=== PATIENT | female | born 1965 | race Caucasian/White ===

== ENCOUNTER 2018-01-27 11:20 | Inpatient (IN) ==
[2018-01-27] MEDS ORDERED: Chlorhexidine Gluconate 2% 1 Pack (2 Cloths) TOPICAL ONE (12:15)
[2018-01-27] MEDS ORDERED: Sodium Chlor 0.9% Inj 500 ML IV.CONT ONE (12:15)
[2018-01-27] MEDS ORDERED: Metoprolol Tartrate 25 MG Tablet PO ONE (12:15)
[2018-01-27] MEDS ORDERED: ceFAZolin 2 GM IV; once IV.SIG ONE (12:30)
[2018-01-27] MEDS ORDERED: Famotidine PF Inj 20 MG/2 ML Vial ONE (13:03)
[2018-01-27 13:04] LABS: INR 1.1 Ratio; Prothrombin Time 11.3 sec (9.8-11.6)
[2018-01-27] MEDS ORDERED: Ketorolac Inj 30 MG/ML (IVP) Vial IV.PUSH ONE (13:51)
[2018-01-27] MEDS ORDERED: Sod Chloride 0.9% Inj 1,000 ML IV.CONT ONE (13:51)
[2018-01-27] MEDS ORDERED: Esmolol Bolus Inj 100 MG/10 ML Vial IV.PUSH ONE (13:51)
[2018-01-27] MEDS ORDERED: Sugammadex Inj 200 MG/2 ML Vial IV.PUSH ONE (16:57)
[2018-01-27] MEDS ORDERED: fentaNYL Citrate Inj 100 MCG/2 ML Ampul ONE ×2 (16:58)
[2018-01-27] MEDS ORDERED: Sodium Chlor 0.9% Inj 1,000 ML IV.SIG SCH (18:00)
[2018-01-27] MEDS ORDERED: *Ondansetron Inj 4 MG/2 ML Vial PERIprocedural Use ONLY ONE (18:32)
[2018-01-27 18:48] LABS: Baso % (Auto) 0.3 % (0.0-2.0); Eos % (Auto) 0.2 % (0.0-4.0); Hemoglobin 13.8 gm/dL (11.6-15.3); Lymph # (Auto) 1.5 th/mm3 (1.0-4.8); Lymph % (Auto) 12.4 % (9.0-44.0); Mean Corpuscular HGB Conc 33.8 % (32.0-36.0); Mean Corpuscular Hemoglobin 28.7 pg (27.0-34.0); Mean Corpuscular Volume 84.9 fL (80.0-100.0); Mean Platelet Volume 9.1 fL (7.0-11.0); Mono # (Auto) 0.4 th/mm3 (0.0-0.9); Mono % (Auto) 3.3 % (0.0-8.0); Neut # (Auto) 9.8 th/mm3 (1.8-7.7); Neut % (Auto) 83.8 % (16.0-70.0); Platelet Count 109 th/mm3 (150-450); Red Blood Count 4.82 mil/mm3 (4.00-5.30); White Blood Count 11.7 th/mm3 (4.0-11.0)
[2018-01-27] MEDS ORDERED: *Promethazine Inj 25 MG/ML Vial PERIprocedural use ONLY ONE (18:49)
[2018-01-27] MEDS ORDERED: *morphine SULFATE 4 MG/ML PERIprocedure ONLY ONE ×2 (18:49→18:59)
[2018-01-27] MEDS ORDERED: Dextrose 50% in Water 50 ML Vial IV.PUSH PRN (18:55)
[2018-01-27 19:06] LABS: Calcium 7.8 mg/dL (8.5-10.1); Carbon Dioxide 22.1 meq/L (21.0-32.0); Potassium 4.2 meq/L (3.5-5.1)
[2018-01-27] MEDS ORDERED: HYDROmorphone PF Inj 2 MG/ML Vial ONE (19:16)
[2018-01-27] MEDS: Pantoprazole Inj 40 MG Vial IV.PUSH SCH (20:07)
[2018-01-27] MEDS: Docusate Sodium 100 MG Capsule PO SCH (20:45)
[2018-01-27] MEDS: Insulin NovoLOG Aspart Correctional Sugar Inj SQ SCH (21:18)
[2018-01-27] MEDS: Insulin Detemir Inj 1,000 UNIT/10 ML Vial SQ SCH (21:19)
[2018-01-28 07:31] LABS: Hematocrit 37.6 % (35.0-46.0); Hemoglobin 12.8 gm/dL (11.6-15.3); Mean Corpuscular Hemoglobin 29.3 pg (27.0-34.0); Mean Corpuscular Volume 86.1 fL (80.0-100.0); Mean Platelet Volume 9.5 fL (7.0-11.0); Platelet Count 108 th/mm3 (150-450); Red Blood Count 4.36 mil/mm3 (4.00-5.30); Red Cell Distribution Width 14.2 % (11.6-17.2)
[2018-01-28 07:56] LABS: Potassium 4.2 meq/L (3.5-5.1)
[2018-01-28] MEDS: Morphine Inj 4 MG/ML Vial IV.PUSH PRN ×4 (08:01→22:48)
[2018-01-28] MEDS: Insulin NovoLOG Aspart Correctional Sugar Inj SQ SCH ×4 (08:03→21:46)
[2018-01-28] MEDS: Docusate Sodium 100 MG Capsule PO SCH ×2 (08:03→20:46)
[2018-01-28] MEDS: Lisinopril 20 MG Tablet PO SCH (08:03)
[2018-01-28] MEDS ORDERED: DAPAGLIFLOZIN PO SCH (09:00)
[2018-01-28] MEDS ORDERED: Sodium Chloride 0.9% 2 ML Flush PRN IV.FLUSH (09:25)
--- NOTE | 2018-01-28 13:02 | MP ---
cc: Oz Banks MD DATE OF OPERATION: 01/27/2018 PREOPERATIVE DIAGNOSES: 1. A 4.5 cm solid right lower pole renal mass. 2. History of diabetes. POSTOPERATIVE DIAGNOSES: 1. A 4.5 cm solid right lower pole renal mass. 2. History of diabetes. PROCEDURE PERFORMED: Robotic-assisted laparoscopic right radical nephrectomy. SURGEON: Oz Banks MD ANESTHESIA: General. COMPLICATIONS: None. PREOPERATIVE ANTIBIOTICS: Ancef 1 gram IV. DRAINS: Low catheter. SPECIMENS: Right kidney for permanent. BLOOD LOSS: 100 mL FLUIDS: 1500 mL crystalloids per anesthesia. DISPOSITION: Stable to recovery. INDICATIONS/SIGNIFICANT HISTORY: The patient is a 52-year-old female with history of diabetes who was found to have a large lower pole right renal mass. Treatment options were discussed with her including the possibility of a robotic partial nephrectomy versus robotic radical nephrectomy. Risks, benefits, alternatives of each were explained. The patient elected to proceed. DETAILS OF PROCEDURE: The patient was properly identified and brought back to the operating room and laid supine on the operating table. A proper timeout was performed. Under the direction of anesthesiology the patient was intubated and induced under general anesthetic. Preoperative IV antibiotics of Ancef 2 grams IV was given within 1 hour of the start of the procedure. A Low catheter was placed under sterile technique. The patient was then placed in left lateral decubitus position with right side up. All pressure points were padded. She was then prepped and draped in normal sterile surgical fashion. A stab incision was made superior and lateral to the umbilicus. A Veress needle was then used to gain access to the abdominal cavity. Insufflation was then achieved. The incision was extended to approximately 2 cm under direct vision and then passed a 12 mm camera port into the abdominal cavity and abdominal cavity was carefully inspected. There was no evidence of any bleeding or intra-abdominal injury. The patient did have some anterior abdominal wall adhesions up near the liver. At this point, 5 other laparoscopic ports were then placed, under direct visualization, including two 8 mm robotic ports triangulated off of the camera port, a 5 mm port in the midline just below the xiphoid process for liver retraction as well as two 12 mm printer's assistant ports in the midline superior and inferior to the umbilicus. Again, all ports were placed under direct visualization. At this point, the robot was then brought into position. I began by taking down the anterior abdominal wall adhesions. These were taken down with a combination of blunt dissection with cold scissors. At this point, I then took down the white line of Toldt to reflect the colon medially. This exposed the retroperitoneum. I was able to easily find the duodenum. Prior to kocherizing the duodenum, I then placed a locking grasper through the 5 mm port under direct visualization and grasped the side wall. Then was able to retract the liver cephalad. At this point, and then carefully kocherized the duodenum and medialized it to expose the IVC. I then developed a plane between the IVC and the right, gonadal vein. I was able to see the attachment of the right gonadal vein into the IVC. A plane was then developed in which I retracted the kidney towards the anterior abdominal wall and exposed the psoas muscle and the IVC. I carefully marched up the IVC until the attachment of the gonadal vein was seen. The gonadal vein was taken with a robotic vessel sealer. I then continued to march up the IVC to the level of the renal hilum; a single artery, but 2 separate veins were seen. A lower pole vein was carefully taken with an endovascular SHELLY stapler. At this point, with both the artery and main renal vein exposed, I then turned my attention to locating the tumor on the kidney itself. The perinephric fat was then removed from the kidney to expose the surface of the kidney. I came across a large inferior solid renal mass on the posterior portion of the kidney, which was very large. It also appeared to be infiltrating towards the hilum. Due to these findings, I decided that it was not feasible to get a clear margin safely by doing a partial nephrectomy, therefore I did decide to convert to a radical nephrectomy, which was previously discussed with the patient. At this point with the artery and renal vein each already dissected out, each one was taken separately with an endovascular GI stapler. At this point, the lateral and superior attachments were then taken down and divided to free up the entire kidney other than the lower pole where the ureter was attached. I was able then to divide the ureter with robotic vessel sealer and the entire bag. The kidney was then placed in the EndoCatch bag. There appeared to be some excess tissue along the IVC near the renal hilum. This was carefully dissected out and placed in the bag with the kidney itself to be shown to the pathologist. At this point, the renal fossa was then copiously irrigated. Hemostasis was achieved. Pneumoperitoneum was brought down to 7 mmHg. There was no evidence of any bleeding. Evicel was then used for hemostatic purposes. This was placed on the adrenal bed, renal fossa and renal hilum. The liver retractor was then removed. The liver appeared to be intact. The IVC was intact as well. No bleeding was seen. No other tissue remained. At this point, I then extracted the specimen through the right lower quadrant incision after extending the right lower quadrant incision. It was then closed in 2 layers. The peritoneum was closed with a running 3-0 Vicryl. The fascia was closed with a running #1-PDS. The epigastrics were visualized and remained intact. At this point a second look was then performed after achieving insufflation. The underside of the incision was free of any bowel. The renal fossa bed appeared to be dry. No bleeding was seen. All ports were removed under direct visualization. Sponge needle and instrument counts were correct at the end of the case. All incisions were closed with 4-0 Monocryl and reinforced with Dermabond. The patient was then extubated and sent to recovery in stable condition. She will be transferred to the floor for routine postoperative care. MD ROMAIN Vergara/toni , 12:23 PM , 12:36 PM OBED
--- NOTE | 2018-01-28 13:40 | P.PNURO ---
Subjective Patient symptoms today: Pt was seen at the bedside. s/p radical nephrectomy yesterday. c/p abd post/op pain, managed by pain meds prn. no f/c/n/v, no BM yet. Tolerates diet well, states that did not get regular food yet. Ambulates without issues to void. Voids normally after cisneros removal today. no hematuria. Labs are stable Objective Vital Signs: Vital Signs 01/27/18 18:30 01/27/18 18:45 01/27/18 19:00 Temperature 98.5 F Pulse Rate 91 H 85 90 Respiratory Rate 15 15 15 Blood Pressure 126/67 115/65 113/61 Pulse Oximetry 99 99 98 01/27/18 19:15 01/27/18 19:30 01/27/18 19:45 Temperature 99 F Pulse Rate 90 90 90 Respiratory Rate 14 12 12 Blood Pressure 118/62 113/57 L 110/56 L Pulse Oximetry 98 98 94 L 01/27/18 20:10 01/28/18 00:00 01/28/18 04:00 Temperature 98.3 F 98.2 F 98.5 F Pulse Rate 94 H 89 77 Respiratory Rate 17 17 17 Blood Pressure 102/52 L 108/54 L 104/58 L Pulse Oximetry 94 L 93 L 94 L 01/28/18 08:00 01/28/18 12:00 Temperature 98.2 F 98.2 F Pulse Rate 76 78 Respiratory Rate 17 17 Blood Pressure 108/52 L 97/53 L Pulse Oximetry 94 L 94 L Intake & Output 01/27/18 01/28/18 01/28/18 18:59 06:59 18:59 Intake Total 1550 / 1550 680 / 680 0 / 0 Output Total 350 / 350 650 / 650 Balance 1200 / 1200 30 / 30 0 / 0 Weight 93.8 kg 93.8 kg Intake: IV 50 / 50 200 / 200 0 / 0 NS Inj 1,000 ML @ 135 mls/hr IV 0 / 0 .SIG .Q10H AD[facility] Rx#:[id number] Ancef 2 GM Premix Inj 2 gm In 50 / 50 50 ml @ 100 mls/hr IV.SIG ONCE ONE Rx#:[id number] Ancef Inj 1,000 MG In NS Inj 200 / 200 100 ML @ 200 mls/hr IV.SIG Q8H ADRIEN Rx#:[id number] Oral 480 / 480 Anesthesia Amount 1500 / 1500 Output: Estimated Blood Loss 100 / 100 Urine Amount (Catheter) 250 / 250 650 / 650 Indwelling Urethral Catheter 250 / 250 650 / 650 Other: Weight On Admission 93.8 kg Result Diagrams: 01/28/18 05:19 01/28/18 05:19 Medications and IVs: Active Medications Generic Name Dose Route Start Last Admin Trade Name Freq PRN Reason Stop Dose Admin Atorvastatin Calcium 40 mg 01/28/18 09:00 01/28/18 08:03 Lipitor PO 40 mg DAILY ADRIEN Administration Dextrose 50 ml 01/27/18 18:55 D50w Vial IV.PUSH UNSCH PRN PER HYPOGLYCEMIA PROTOCOL Docusate Sodium 100 mg 01/27/18 21:00 01/28/18 08:03 Colace PO Not Given BID ADRIEN Escitalopram Oxalate 20 mg 01/28/18 09:00 01/28/18 08:03 Lexapro PO 20 mg DAILY ADRIEN Administration Glucagon 1 mg 01/27/18 18:55 Glucagon Inj OTHER PRN PRN for Hypoglycemia Protocol Sodium Chloride 1,000 mls @ 135 mls/hr 01/27/18 18:00 01/28/18 10:35 Ns Inj IV.SIG 135 mls/hr .Q10H [facility] Infusion Insulin Aspart 0 unit 01/27/18 21:00 01/28/18 12:48 Novolog Insulin Correctional Sugar Inj SQ Not Given ACHS [facility] Protocol Insulin Detemir 75 unit 01/27/18 21:00 01/27/18 21:19 Levemir Inj SQ 75 unit HS ADRIEN Administration Lisinopril 40 mg 01/28/18 09:00 01/28/18 08:03 Prinivil PO 40 mg DAILY ADRIEN Administration Metformin HCl 1,000 mg 01/28/18 09:00 01/28/18 08:02 Glucophage PO 1,000 mg DAILY ADRIEN Administration Miscellaneous Information 1 each 01/27/18 19:02 Misc Nursing Information OTHER 01/28/18 19:02 UNSCH PRN SEE LABEL COMMENTS Morphine Sulfate 4 mg 01/27/18 17:36 01/28/18 12:45 Morphine Inj IV.PUSH 4 mg Q4H PRN Administration BREAKTHROUGH PAIN Ondansetron HCl 4 mg 01/27/18 17:38 01/27/18 21:15 Zofran Inj IV.PUSH 4 mg Q6H PRN Administration NAUSEA OR VOMITING Oxycodone/Acetaminophen 2 tab 01/27/18 17:36 01/28/18 09:29 Percocet 5/325 Mg PO 2 tab Q4H PRN Administration PAIN SCALE 6 TO 10 Oxycodone/Acetaminophen 1 tab 01/27/18 17:38 Percocet 5/325 Mg PO Q4H PRN PAIN SCALE 3 TO 5 Pantoprazole Sodium 40 mg 01/27/18 20:00 01/27/18 20:07 Protonix Inj IV.PUSH Not Given Q24H ADRIEN Pt:Farxiga( 0 each 01/28/18 09:00 Dapagliflozin) 5 Mg PO DAILY ADRIEN Sodium Chloride 2 ml 01/28/18 21:00 Ns Flush IV.FLUSH BID ADRIEN Sodium Chloride 2 ml 01/28/18 09:25 Ns Flush IV.FLUSH PRN PRN FLUSH AFTER USING IV ACCESS Objective Remarks: NAD RRR Clear lungs Abd soft slightly distended. incisions c/d/i Assessment and Plan - Plan POD# 1 s/p Robotic-assisted laparoscopic right radical nephrectomy. - Continue current management - Pain control prn - Ambulate - Advance to diabetic diet - When in bed use IS - Labs at AM - If pain is improving and she feels better possibly d/c tomorrow
[2018-01-28] MEDS: Pantoprazole Inj 40 MG Vial IV.PUSH SCH (20:47)
[2018-01-28] MEDS: Insulin Detemir Inj 1,000 UNIT/10 ML Vial SQ SCH (20:48)
[2018-01-28] MEDS: Sodium Chloride 0.9% 2 ML Flush BID IV.FLUSH SCH (20:49)
[2018-01-29 04:58] LABS: Baso % (Auto) 0.2 % (0.0-2.0); Eos # (Auto) 0.1 th/mm3 (0.0-0.4); Eos % (Auto) 1.6 % (0.0-4.0); Hematocrit 37.5 % (35.0-46.0); Hemoglobin 12.5 gm/dL (11.6-15.3); Lymph # (Auto) 2.3 th/mm3 (1.0-4.8); Lymph % (Auto) 24.3 % (9.0-44.0); Mean Corpuscular HGB Conc 33.4 % (32.0-36.0); Mean Corpuscular Hemoglobin 28.9 pg (27.0-34.0); Mean Corpuscular Volume 86.6 fL (80.0-100.0); Mean Platelet Volume 9.1 fL (7.0-11.0); Mono # (Auto) 0.8 th/mm3 (0.0-0.9); Mono % (Auto) 8.4 % (0.0-8.0); Neut # (Auto) 6.1 th/mm3 (1.8-7.7); Neut % (Auto) 65.5 % (16.0-70.0); Platelet Count 96 th/mm3 (150-450); Red Blood Count 4.33 mil/mm3 (4.00-5.30); Red Cell Distribution Width 14.4 % (11.6-17.2); White Blood Count 9.3 th/mm3 (4.0-11.0)
[2018-01-29 05:18] LABS: Calcium 7.8 mg/dL (8.5-10.1); Carbon Dioxide 26.4 meq/L (21.0-32.0); Potassium 3.8 meq/L (3.5-5.1)
[2018-01-29 06:50] LABS: Platelet Morphology Normal (Normal)
[2018-01-29] MEDS: Morphine Inj 4 MG/ML Vial IV.PUSH PRN ×3 (08:34→19:23)
[2018-01-29] MEDS: Docusate Sodium 100 MG Capsule PO SCH ×2 (08:35→21:23)
[2018-01-29] MEDS: Insulin NovoLOG Aspart Correctional Sugar Inj SQ SCH ×4 (08:35→21:28)
[2018-01-29] MEDS: Lisinopril 20 MG Tablet PO SCH (08:36)
[2018-01-29] MEDS: Sodium Chloride 0.9% 2 ML Flush BID IV.FLUSH SCH ×2 (08:36→21:31)
--- NOTE | 2018-01-29 14:40 | P.PNURO ---
Subjective Patient symptoms today: Pt was seen at bedside. Still has pain issues at the largest incision site. Controlled with meds Also she has a chronic back pain and using pain meds at home for it. no f/c/n/v, had a spike of T to 100 earlier. Labs are ok. Voids without difficulties, no hematuria. No flatus or BM yet. Tolerates current diet well. No problems with ambulation Objective Vital Signs: Vital Signs 01/28/18 16:00 01/28/18 20:00 01/29/18 00:00 Temperature 98.2 F 99.5 F 99.8 F H Pulse Rate 70 75 92 H Respiratory Rate 17 18 18 Blood Pressure 99/56 L 98/56 L 98/53 L Pulse Oximetry 96 91 L 94 L 01/29/18 08:00 01/29/18 12:00 Temperature 100.0 F H 98.5 F Pulse Rate 98 H 86 Respiratory Rate 17 17 Blood Pressure 117/57 L 99/56 L Pulse Oximetry 91 L 90 L Intake & Output 01/28/18 01/29/18 01/29/18 18:59 06:59 18:59 Intake Total 2195 / 2195 Balance 2195 / 2195 Weight 97.6 kg Intake: IV 935 / 935 NS Inj 1,000 ML @ 135 mls/hr IV 935 / 935 .SIG .Q10H ADRIEN Rx#:[id number] Oral 1260 / 1260 Other: # Voids 4 2 Result Diagrams: 01/29/18 04:28 01/29/18 04:28 Medications and IVs: Active Medications Generic Name Dose Route Start Last Admin Trade Name Freq PRN Reason Stop Dose Admin Atorvastatin Calcium 40 mg 01/28/18 09:00 01/29/18 08:35 Lipitor PO 40 mg DAILY ADRIEN Administration Dextrose 50 ml 01/27/18 18:55 D50w Vial IV.PUSH UNSCH PRN PER HYPOGLYCEMIA PROTOCOL Docusate Sodium 100 mg 01/27/18 21:00 01/29/18 08:35 Colace PO 100 mg BID ADRIEN Administration Escitalopram Oxalate 20 mg 01/28/18 09:00 01/29/18 08:35 Lexapro PO 20 mg DAILY ADRIEN Administration Glucagon 1 mg 01/27/18 18:55 Glucagon Inj OTHER PRN PRN for Hypoglycemia Protocol Sodium Chloride 1,000 mls @ 135 mls/hr 01/27/18 18:00 01/28/18 17:58 Ns Inj IV.SIG Infused .Q10H AD[facility]EN Infusion Insulin Aspart 0 unit 01/27/18 21:00 01/29/18 12:06 Novolog Insulin Correctional Sugar Inj SQ 100 unit ACHS [facility] Administration Protocol Insulin Detemir 75 unit 01/27/18 21:00 01/28/18 20:48 Levemir Inj SQ 75 unit HS ADRIEN Administration Lisinopril 40 mg 01/28/18 09:00 01/29/18 08:36 Prinivil PO 40 mg DAILY ADRIEN Administration Metformin HCl 1,000 mg 01/28/18 09:00 01/29/18 08:35 Glucophage PO 1,000 mg DAILY ADRIEN Administration Morphine Sulfate 4 mg 01/27/18 17:36 01/29/18 13:27 Morphine Inj IV.PUSH 4 mg Q4H PRN Administration BREAKTHROUGH PAIN Ondansetron HCl 4 mg 01/27/18 17:38 01/29/18 06:45 Zofran Inj IV.PUSH 4 mg Q6H PRN Administration NAUSEA OR VOMITING Oxycodone/Acetaminophen 2 tab 01/27/18 17:36 01/29/18 11:12 Percocet 5/325 Mg PO 2 tab Q4H PRN Administration PAIN SCALE 6 TO 10 Oxycodone/Acetaminophen 1 tab 01/27/18 17:38 Percocet 5/325 Mg PO Q4H PRN PAIN SCALE 3 TO 5 Oxycodone/Acetaminophen 2 tab 01/28/18 20:27 01/29/18 06:10 Percocet 7.5/325 Mg PO 2 tab Q4H PRN Administration PAIN 6-10 Pantoprazole Sodium 40 mg 01/27/18 20:00 01/28/18 20:47 Protonix Inj IV.PUSH 40 mg Q24H ADRIEN Administration Pt:Farxiga( 0 each 01/28/18 09:00 Dapagliflozin) 5 Mg PO DAILY ADRIEN Sodium Chloride 2 ml 01/28/18 21:00 01/29/18 08:36 Ns Flush IV.FLUSH 2 ml BID ADRIEN Administration Sodium Chloride 2 ml 01/28/18 09:25 Ns Flush IV.FLUSH PRN PRN FLUSH AFTER USING IV ACCESS Objective Remarks: NAD RRR Clear lungs Abd soft slightly distended. incisions c/d/i Assessment and Plan - Plan POD# 2 s/p Robotic-assisted laparoscopic right radical nephrectomy. - Continue current management - Pain control prn - Ambulate, IS - Tolerates diet well. - DVT prophylaxis. - Labs at AM - If pain is improving and she feels better possibly d/c tomorrow Discussed Condition With: Dr Darren TREJO attending
[2018-01-29] MEDS: Pantoprazole Inj 40 MG Vial IV.PUSH SCH (21:24)
[2018-01-29] MEDS: Insulin Detemir Inj 1,000 UNIT/10 ML Vial SQ SCH (21:31)
[2018-01-30] MEDS: Morphine Inj 4 MG/ML Vial IV.PUSH PRN ×3 (00:16→10:54)
[2018-01-30 00:40] VITALS: RESP 18
[2018-01-30] MEDS: Docusate Sodium 100 MG Capsule PO SCH (08:42)
[2018-01-30] MEDS: Lisinopril 20 MG Tablet PO SCH (08:43)
[2018-01-30] MEDS: Insulin NovoLOG Aspart Correctional Sugar Inj SQ SCH ×2 (08:44→12:40)
[2018-01-30] MEDS: Sodium Chloride 0.9% 2 ML Flush BID IV.FLUSH SCH (08:44)
[2018-01-30 12:33] VITALS: BP 121/60; PULSE 87; TEMP 98.5; O2SAT 93
--- NOTE | 2018-01-30 13:19 | P.PNURO ---
Subjective Patient symptoms today: Pt was seen at bedside. Doing well. Post/op pain is improving. Ambulated and tolerates diet well. + flatus, no BM yet. No hematuria, no voiding issues Objective Vital Signs: Vital Signs 01/29/18 16:00 01/29/18 20:00 01/30/18 00:00 Temperature 97.8 F 98.6 F 98.7 F Pulse Rate 88 96 H 90 Respiratory Rate 17 18 18 Blood Pressure 93/51 L 117/65 101/55 L Pulse Oximetry 90 L 93 L 95 01/30/18 08:00 01/30/18 12:00 Temperature 98.2 F 98.5 F Pulse Rate 94 H 87 Respiratory Rate 18 18 Blood Pressure 131/77 121/60 Pulse Oximetry 95 93 L Intake & Output 01/29/18 01/30/18 01/30/18 18:59 06:59 18:59 Intake Total 1080 / 1080 1700 / 1700 Balance 1080 / 1080 1700 / 1700 Weight 98.1 kg Intake: IV 0 / 0 Oral 1080 / 1080 1700 / 1700 Other: # Voids 6 2 Date of Last Bowel Movement 01/27/18 Result Diagrams: 01/29/18 04:28 01/29/18 04:28 Medications and IVs: Active Medications Generic Name Dose Route Start Last Admin Trade Name Freq PRN Reason Stop Dose Admin Atorvastatin Calcium 40 mg 01/28/18 09:00 01/30/18 08:43 Lipitor PO 40 mg DAILY ADRIEN Administration Dextrose 50 ml 01/27/18 18:55 D50w Vial IV.PUSH UNSCH PRN PER HYPOGLYCEMIA PROTOCOL Docusate Sodium 100 mg 01/27/18 21:00 01/30/18 08:42 Colace PO 100 mg BID ADRIEN Administration Escitalopram Oxalate 20 mg 01/28/18 09:00 01/30/18 08:43 Lexapro PO 20 mg DAILY ADRIEN Administration Glucagon 1 mg 01/27/18 18:55 Glucagon Inj OTHER PRN PRN for Hypoglycemia Protocol Sodium Chloride 1,000 mls @ 135 mls/hr 01/27/18 18:00 01/28/18 17:58 Ns Inj IV.SIG Infused .Q10H [facility] Infusion Insulin Aspart 0 unit 01/27/18 21:00 01/30/18 12:40 Novolog Insulin Correctional Sugar Inj SQ Not Given ACHS [facility] Protocol Insulin Detemir 75 unit 01/27/18 21:00 01/29/18 21:31 Levemir Inj SQ 75 unit HS [facility]RIEN Administration Lisinopril 40 mg 01/28/18 09:00 01/30/18 08:43 Prinivil PO 40 mg DAILY ADRIEN Administration Metformin HCl 1,000 mg 01/28/18 09:00 01/29/18 08:35 Glucophage PO 1,000 mg DAILY ADRIEN Administration Morphine Sulfate 4 mg 01/27/18 17:36 01/30/18 10:54 Morphine Inj IV.PUSH 4 mg Q4H PRN Administration BREAKTHROUGH PAIN Ondansetron HCl 4 mg 01/27/18 17:38 01/30/18 06:13 Zofran Inj IV.PUSH 4 mg Q6H PRN Administration NAUSEA OR VOMITING Oxycodone/Acetaminophen 2 tab 01/27/18 17:36 01/29/18 11:12 Percocet 5/325 Mg PO 2 tab Q4H PRN Administration PAIN SCALE 6 TO 10 Oxycodone/Acetaminophen 1 tab 01/27/18 17:38 Percocet 5/325 Mg PO Q4H PRN PAIN SCALE 3 TO 5 Oxycodone/Acetaminophen 2 tab 01/28/18 20:27 01/30/18 08:43 Percocet 7.5/325 Mg PO 2 tab Q4H PRN Administration PAIN 6-10 Pantoprazole Sodium 40 mg 01/27/18 20:00 01/29/18 21:24 Protonix Inj IV.PUSH 40 mg Q24H [facility]RIEN Administration Pt:Farxiga( 0 each 01/28/18 09:00 Dapagliflozin) 5 Mg PO DAILY ADRIEN Sodium Chloride 2 ml 01/28/18 21:00 01/30/18 08:44 Ns Flush IV.FLUSH 2 ml BID ADRIEN Administration Sodium Chloride 2 ml 01/28/18 09:25 Ns Flush IV.FLUSH PRN PRN FLUSH AFTER USING IV ACCESS Objective Remarks: NAD RRR Clear lungs Abd soft slightly distended. incisions c/d/i Assessment and Plan - Plan POD# 3 s/p Robotic-assisted laparoscopic right radical nephrectomy. - Pt continues to improve She has chronic back pain which contributes to her general post op pain as well Uriology khan she is stable to be d/c Pt agrees with this plan D/c planning initiated.
--- NOTE | 2018-02-20 12:23 | P.DS ---
Date of admission: 01/27/18 17:34 Primary care physician: Fay Primary Care Physician Attending physician on discharge: Oz Banks Anticipated date of discharge: 01/30/18 Brief History from admission: 52 yo female with large right renal mass. She was admitted following a Right Robotic Radical Nephrectomy. Her hospital stay was uncomplicated. Her diet progressed appropriately and she was moving her bowels. Her pain was well controlled and she was voiding on her own. She was discharged home on POD #3. Patient update on day of discharge: Condition on day of discharge: Good. DS: Diagnosis - Discharge Diagnosis (1) Kidney malignant neoplasm Status: Acute DS: Medications - Discharge Medications Prescriptions: docusate sodium [DOK] 100 mg PO BID #60 cap DS: Summary Hospital Course: 52 yo female with large right renal mass. She was admitted following a Right Robotic Radical Nephrectomy. Her hospital stay was uncomplicated. Her diet progressed appropriately and she was moving her bowels. Her pain was well controlled and she was voiding on her own. She was discharged home on POD #3. - Time Spent with Patient Total time spent providing and/or coordinating discharge services: Less than 30 minutes - Quality: VTE Deep Vein Thrombosis/Pulmonary Embolism Present on Admission: No Results Procedures completed during hospitalization: right Robotic Radical Nephrectomy. Completed studies during hospitalization: Pending at discharge 01/27/18 07:49 Surgical [PTH] Routine Discharge Plan - Discharge Disposition Patient Disposition: 01 Discharge Home - Discharge Condition Condition: Stable - Discharge Order Discharge Orders: Discharge Order (Routine); Ordered 01/30/18 Ordered By: Tomas Mcmanus - Discharge Details Anticipated Discharge Date: 01/30/18 - Physicians Team Primary Care Provider: Primary Care Fay Wilson Attending Provider: Oz Banks - Rxs /Orders / Referrals /Forms Prescriptions: New docusate sodium [DOK] 100 mg Capsule 100 mg PO BID Qty: 60 RF: 0 Continue dapagliflozin [Farxiga] 5 mg Tablet 5 mg PO DAILY escitalopram oxalate 20 mg Tablet 20 mg PO DAILY insulin glargine [Lantus Solostar U-100 Insulin] 100 unit/mL (3 mL) Insulin Pen 75 unit SUB-Q HS lisinopril 40 mg Tablet 40 mg PO DAILY metformin 1,000 mg Tablet Extended Release 24hr 1,000 mg PO DAILY oxycodone-acetaminophen [Percocet] 5-325 mg Tablet 1 tab PO Q4-6H PRN (Reason: Pain) rosuvastatin 20 mg Tablet 20 mg PO DAILY Referrals: Primary Care Nessai,Fay [Primary Care Provider] - See Instructions ([address], [place], [place] [phone] -Office opens at 8:00am, Call the morning of you would like to be seen. [facility] offers same day appts. ) - Discharge Instructions Patient Printed Instructions: Laparoscopic Radical Nephrectomy (DC) Additional Instructions: No heavy lifting or strenuous activity. Ok to shower.
== END 2018-01-30 15:15 | disposition home or self-care (01) ==
LOC: HSDC 11:20 → EDSTATUS 13:30 → HSDI 17:34 → N07 20:06
PROVIDERS: ADMIT Urology; ATTEND Urology